=== PATIENT | male | born 1985 | race African-American/Black ===

== ENCOUNTER 2016-10-02 13:23 | Emergency (ER) | payer SELFPAY ==
[~2016-10-02] VITALS: Ht 185.4 cm; Wt 79.4 kg
[~2016-10-02 13:23] MED LIST: ACET-704 PO; ACET5SOL PO; ALBU8.5H6 IH; FAMO-63 PO; POLY10DR EACHEYE
[2016-10-02 14:03] VITALS: BP 127/79
--- NOTE | 2016-10-02 14:56 | PHYS DOC ---
Past Medical History Past Medical History: No Pertinent History Past Surgical History: No Surgical History Additional Information: quit 3 weeks ago Alcohol Use: Rarely Drug Use: Marijuana Adult General Chief Complaint Chief Complaint: VISION PROBLEM HPI HPI Patient is a 30 year old who presents stating he has black things floating in his vision figueroa for the last 3 weeks. Patient denies any vision loss. Review of Systems Review of Systems Constitutional: Denies fever or chills [] Eyes: black things floating in his vision field HENT: Denies nasal congestion or sore throat [] Musculoskeletal: Denies back pain or joint pain [] Integument: Denies rash or skin lesions [] Neurologic: Denies headache, focal weakness or sensory changes [] Endocrine: Denies polyuria or polydipsia [] Allergies Allergies Allergies Coded Allergies Type Severity Reaction Last Updated Verified No Known Drug Allergies 06/17/13 No Physical Exam Physical Exam Constitutional: Well developed, well nourished, no acute distress, non-toxic appearance. [] HENT: Normocephalic, atraumatic, bilateral external ears normal, oropharynx moist, no oral exudates, nose normal. [] Inner chambers are normal Eyes: PERRLA, EOMI, conjunctiva normal, no discharge. [] Neck: Normal range of motion, no tenderness, supple, no stridor. [] Cardiovascular:Heart rate regular rhythm, no murmur [] Skin: Warm, dry, no erythema, no rash. [] Back: No tenderness, no CVA tenderness. [] Extremities: No tenderness, no cyanosis, no clubbing, ROM intact, no edema. [] Neurologic: Alert and oriented X 3, normal motor function, normal sensory function, no focal deficits noted. [] Psychologic: Affect normal, judgement normal, mood normal. [] Current Patient Data Vital Signs Vital Signs Date Time Temp Pulse Resp B/P Pulse Ox O2 Delivery O2 Flow Rate FiO2 10/02/16 14:03 98.2 87 16 127/79 100 Room Air 98.2 EKG EKG [] Radiology/Procedures Radiology/Procedures [] Course & Med Decision Making Course & Med Decision Making Pertinent Labs and Imaging studies reviewed. (See chart for details) Patient has floaters to both his vision figueroa. Vision acuity R 20/15, L 20/15 and b 20/13. F/u with Turner In this week. Dragon Disclaimer Dragon Disclaimer This electronic medical record was generated, in whole or in part, using a voice recognition dictation system. Departure Departure Impression: Primary Impression: Floaters in visual field Disposition: 01 HOME, SELF-CARE Referrals: NO PCP (PCP) CANDIDA GAMBOA MD Follow-up with the eye doctor in one week Patient Instructions: Eye - Floaters Additional Instructions: You were seen for floaters in her vision field. Please follow-up with the provided sales support coordinator in one week. Come back to the ED for vision loss. Problem Qualifiers Primary Impression: Floaters in visual field Laterality: bilateral Qualified Code: H43.393 - Other vitreous opacities, bilateral MUTUNGAYOSVANY ENVIRONMENTAL FIELD TECHNICIAN Oct 02, 2016 14:55
== END 2016-10-02 14:58 | disposition home or self-care (01) ==
LOC: ER 13:23
DX: H43.393 Other vitreous opacities, bilateral (principal); F12.10 Cannabis abuse, uncomplicated
CPT/HCPCS: 99282

== ENCOUNTER 2016-12-15 13:01 | Emergency (ER) | payer SELFPAY ==
[~2016-12-15] VITALS: Ht 185.4 cm; Wt 74.8 kg
--- NOTE | 2016-12-15 13:29 | PHYS DOC ---
Past Medical History Past Medical History: Other Additional Past Medical Histor: chronic abd pain Past Surgical History: No Surgical History Alcohol Use: Rarely Drug Use: Marijuana Adult General Chief Complaint Chief Complaint: ABDOMINAL PAIN HPI HPI Patient is a 31 year old male presents to the emergency room stating he's had 8 days of nausea vomiting. He denies any blood being printed up. He does state that every time he eats he vomits. Patient states that he had a small bowel movement today. He states that this is not smaller than normal. He denies any fever, chills. He states he has not taken anything for the pain and discomfort. He has not taken anything for nausea vomiting. Patient continues to state that he has slightly dark yellow urine. Patient was last noted to have something to eat in the waiting room, fruits next room the vending machine. Review of Systems Review of Systems Constitutional: Denies fever or chills [] Eyes: Denies change in visual acuity, redness, or eye pain [] HENT: Denies nasal congestion or sore throat [] Respiratory: Denies cough or shortness of breath [] Cardiovascular: No additional information not addressed in HPI [] GI: abdominal pain, nausea, vomiting, denies bloody stools or diarrhea [] : Denies dysuria or hematuria [] Musculoskeletal: Denies back pain or joint pain [] Integument: Denies rash or skin lesions [] Neurologic: Denies headache, focal weakness or sensory changes [] Endocrine: Denies polyuria or polydipsia [] Current Medications Current Medications Current Medications Medications (Trade) Dose Ordered Sig/Deepthi Start Time Stop Time Status Last Admin Dose Admin Al Hydroxide/Mg Hydroxide (Mylanta Plus Xs) 30 ml 1X ONCE 12/15/16 13:30 12/15/16 13:31 DC 12/15/16 13:52 30 ML Famotidine (Pepcid) 20 mg 1X ONCE 12/15/16 16:15 12/15/16 16:16 Ondansetron HCl (Zofran) 4 mg 1X ONCE 12/15/16 13:30 12/15/16 13:31 DC 12/15/16 13:52 4 MG Sodium Chloride 1,000 ml @ 1,000 mls/hr 1X ONCE 12/15/16 13:30 12/15/16 14:29 DC 12/15/16 13:53 1,000 MLS/HR Allergies Allergies Allergies Coded Allergies Type Severity Reaction Last Updated Verified No Known Drug Allergies 06/17/13 No Physical Exam Physical Exam Constitutional: Well developed, well nourished, no acute distress, non-toxic appearance. [] HENT: Normocephalic, atraumatic, bilateral external ears normal, oropharynx moist, no oral exudates, nose normal. [] Eyes: PERRLA, EOMI, conjunctiva normal, no discharge. [] Neck: Normal range of motion, no tenderness, supple, no stridor. [] Cardiovascular:Heart rate regular rhythm, no murmur [] Lungs & Thorax: Bilateral breath sounds clear to auscultation [] Abdomen: Bowel sounds hypoactive, soft, no tenderness, no masses, no pulsatile masses. No rebound tenderness noted no point tenderness noted no guarding noted Skin: Warm, dry, no erythema, no rash. [] Back: No tenderness Extremities: No tenderness, no cyanosis, no clubbing, ROM intact, no edema. [] Neurologic: Alert and oriented X 3, normal motor function, normal sensory function, no focal deficits noted. [] Psychologic: Affect normal, judgement normal, mood normal. [] Current Patient Data Vital Signs Vital Signs Date Time Temp Pulse Resp B/P (MAP) Pulse Ox O2 Delivery O2 Flow Rate FiO2 12/15/16 13:15 99.1 85 15 154/96 (115) 98 Room Air 99.1 Lab Values Laboratory Tests Test 12/15/16 13:20 12/15/16 15:20 White Blood Count 10.8 x10^3/uL (4.0-11.0) Red Blood Count 4.92 x10^6/uL (4.30-5.70) Hemoglobin 15.1 g/dL (13.0-17.5) Hematocrit 44.2 % (39.0-53.0) Mean Corpuscular Volume 90 fL (79-100) Mean Corpuscular Hemoglobin 31 pg (25-35) Mean Corpuscular Hemoglobin Concent 34 g/dL (31-37) Red Cell Distribution Width 13.5 % (11.5-14.5) Platelet Count 393 x10^3/uL (140-400) Neutrophils (%) (Auto) 71 % (31-73) Lymphocytes (%) (Auto) 23 % (24-48) L Monocytes (%) (Auto) 4 % (0-9) Eosinophils (%) (Auto) 1 % (0-3) Basophils (%) (Auto) 0 % (0-3) Neutrophils # (Auto) 7.7 x10^3uL (1.8-7.7) Lymphocytes # (Auto) 2.5 x10^3/uL (1.0-4.8) Monocytes # (Auto) 0.5 x10^3/uL (0.0-1.1) Eosinophils # (Auto) 0.1 x10^3/uL (0.0-0.7) Basophils # (Auto) 0.0 x10^3/uL (0.0-0.2) Sodium Level 145 mmol/L (136-145) Potassium Level 3.6 mmol/L (3.5-5.1) Chloride Level 106 mmol/L (98-107) Carbon Dioxide Level 32 mmol/L (21-32) Anion Gap 7 (6-14) Blood Urea Nitrogen 10 mg/dL (8-26) Creatinine 0.9 mg/dL (0.7-1.3) Estimated GFR (Cockcroft-Gault) 119.9 BUN/Creatinine Ratio 11 (6-20) Glucose Level 103 mg/dL (70-99) H Calcium Level 8.4 mg/dL (8.5-10.1) L Total Bilirubin 0.3 mg/dL (0.2-1.0) Aspartate Amino Transferase (AST) 10 U/L (15-37) L Alanine Aminotransferase (ALT) 12 U/L (16-63) L Alkaline Phosphatase 75 U/L (46-116) Total Protein 7.2 g/dL (6.4-8.2) Albumin 3.7 g/dL (3.4-5.0) Albumin/Globulin Ratio 1.1 (1.0-1.7) Amylase Level 221 U/L (25-115) H Lipase 903 U/L (73-393) H Urine Collection Type Unknown Urine Color Yellow Urine Clarity Clear Urine pH 6.5 Urine Specific [place] 1.025 Urine Protein Negative mg/dL (NEG-TRACE) Urine Glucose (UA) Negative mg/dL (NEG) Urine Ketones (Stick) Negative mg/dL (NEG) Urine Blood Negative (NEG) Urine Nitrite Negative (NEG) Urine Bilirubin Negative (NEG) Urine Urobilinogen Dipstick 1.0 mg/dL (0.2 mg/dL) Urine Leukocyte Esterase Negative (NEG) Urine RBC 0 /HPF (0-2) Urine WBC 1-4 /HPF (0-4) Urine Squamous Epithelial Cells Few /LPF Urine Bacteria 0 /HPF (0-FEW) Urine Mucus Mod /LPF Laboratory Tests 12/15/16 13:20 Laboratory Tests 12/15/16 13:20 EKG EKG [] Radiology/Procedures Radiology/Procedures [] Course & Med Decision Making Course & Med Decision Making Pertinent Labs and Imaging studies reviewed. (See chart for details) CBC, CMP, amylase and lipase, normal saline, Zofran, Maalox, acute abdominal series have been ordered. Patient's amylase and lipase were both elevated. Patient had been provided with a Maalox in the emergency department which is helped his pain and discomfort he was able to sleep for the last 2 hours while he was here in the emergency department. Upon evaluation of the patient explaining to him that his labs looked pretty good although his amylase and lipase were elevated. Patient states that his abdominal pain and discomfort in the left upper abdomen is starting to come back. He'll provided with some Pepcid. Patient was encouraged take Pepcid on a daily basis and follow-up the primary care physician. Patient will be discharged home in stable condition signs symptoms to return back to emergency department been provided. Patient agrees with discharge instructions treatment regimens and follow-up recommendations. [] Dragon Disclaimer Dragon Disclaimer This electronic medical record was generated, in whole or in part, using a voice recognition dictation system. Departure Departure Impression: Primary Impression: Abdominal pain Disposition: 01 HOME, SELF-CARE Condition: STABLE Referrals: NO PCP (PCP) Patient Instructions: Abdominal Pain Additional Instructions: Activity as tolerated. Medications as prescribed. Clear liquid diet for the next 24 hours. Avoid fried greasy fatty foods. Follow-up with a primary care physician in the next week. Return back to emergency prior signs and symptoms of become worse. Scripts Famotidine (PEPCID) 40 Mg Tablet 40 MG PO HS, #30 TAB Prov: MARION FLORES APRN 12/15/16 MARION FLORES APRN Dec 15, 2016 13:29
[2016-12-15] MEDS ORDERED: MAG HYDROX/ALUMINUM HYD/SIMETH 30 ML ORAL.SUSP PO ONE (13:30)
[2016-12-15] MEDS ORDERED: ONDANSETRON PF 4 MG/2 ML VIAL. IV ONE (13:30)
[2016-12-15] MEDS ORDERED: IV NORMAL SALINE 1000ML BAG 1,000 ML IV ONE (13:30)
[2016-12-15 13:47] LABS: BASO % 0 % (0-3); EOS % 1 % (0-3); HEMATOCRIT 44.2 % (39.0-53.0); HEMOGLOBIN 15.1 g/dL (13.0-17.5); LYMPH # 2.5 x10^3/uL (1.0-4.8); LYMPH % 23 % (24-48); MEAN CORPUSCULAR HEMOGLOBIN 31 pg (25-35); MEAN CORPUSCULAR HGB CONC 34 g/dL (31-37); MEAN CORPUSCULAR VOLUME 90 fL (79-100); MONO % 4 % (0-9); NEUT % 71 % (31-73); PLATELET COUNT 393 x10^3/uL (140-400); RED BLOOD COUNT 4.92 x10^6/uL (4.30-5.70); RED CELL DISTRIBUTION WIDTH 13.5 % (11.5-14.5); WHITE BLOOD COUNT 10.8 x10^3/uL (4.0-11.0)
[2016-12-15 13:59] LABS: CALCIUM 8.4 mg/dL (8.5-10.1); CREATININE 0.9 mg/dL (0.7-1.3); GFR 119.9; POTASSIUM 3.6 mmol/L (3.5-5.1)
[2016-12-15 14:06] LABS: ALBUMIN 3.7 g/dL (3.4-5.0); ALBUMIN/GLOBULIN RATIO 1.1 (1.0-1.7); TOTAL BILIRUBIN 0.3 mg/dL (0.2-1.0); TOTAL PROTEIN 7.2 g/dL (6.4-8.2)
--- NOTE | 2016-12-15 14:11 | RAD ---
Examination: Acute abdomen series History: History of left upper abdominal pain, vomiting Comparison: 01/24/2016 Findings: The cardiomediastinal silhouette grossly appears unremarkable. There is no acute infiltrate or visualize pneumothorax. The bowel gas pattern appears unremarkable. Impression: 1. No acute cardiopulmonary findings. 2. Unremarkable bowel gas pattern.
[2016-12-15 15:33] LABS: BILIRUBIN,URINE NEGATIVE (NEG); GLUCOSE,URINE NEGATIVE (NEG); NITRITE,URINE NEGATIVE (NEG); PH,URINE 6.5; PROTEIN,URINE NEGATIVE (NEG-TRACE)
[2016-12-15 15:37] VITALS: BP 131/77
[2016-12-15 16:03] LABS: BACTERIA,URINE 0 /HPF (0-FEW); RBC,URINE 0 /HPF (0-2); SQUAMOUS EPITHELIAL CELL,UR FEW /LPF
[2016-12-15] MEDS ORDERED: FAMO40TA57 PO (16:03)
[2016-12-15] MEDS ORDERED: FAMOTIDINE 20 MG TABLET. PO ONE (16:15)
== END 2016-12-15 16:10 | disposition home or self-care (01) ==
LOC: ER 13:01
DX: R10.9 Unspecified abdominal pain (principal); R11.2 Nausea with vomiting, unspecified; F12.10 Cannabis abuse, uncomplicated
CPT/HCPCS: 36415; 74022; 80053; 81001; 82150; 83690; 85027; 96361; 96374; 99285; J2405; J7030

== ENCOUNTER 2018-02-21 10:27 | Emergency (ER) | payer SELFPAY ==
[~2018-02-21] VITALS: Ht 182.9 cm; Wt 77.1 kg
[~2018-02-21 10:27] MED LIST changes: +FAMO40TA57 PO
[2018-02-21 10:32] VITALS: BP 139/66
[2018-02-21] MEDS ORDERED: KETOROLAC 60 MG/2 ML INJ. IM ONE (11:15)
[2018-02-21] MEDS ORDERED: ORPH100T PO (12:12)
[2018-02-21] MEDS ORDERED: NAPR-514 PO (12:12)
--- NOTE | 2018-02-21 12:12 | PHYS DOC ---
Past Medical History Past Medical History: Other Additional Past Medical Histor: chronic abd pain Past Surgical History: No Surgical History Alcohol Use: Rarely Drug Use: Marijuana Adult General Chief Complaint Chief Complaint: LOWER BACK PAIN OR INJURY HPI HPI Patient is a 32 year old -[place] male who presents to the emergency department with bilateral low back pain that radiates to his bilateral groins after lifting his paraplegic brother into a vehicle yesterday. He denies any saddle anesthesia, or loss of bowel or bladder control. He denies any fever, abdominal pain, dysuria, increased urinary frequency, or blood in his urine. He states that his pain as a 10 out of 10 on the pain scale, and that the pain is exacerbated by movement. Review of Systems Review of Systems Constitutional: Denies fever or chills [] GI: Denies abdominal pain, or saddle anesthesia : Denies dysuria or hematuria, or loss of bowel or bladder control [] Musculoskeletal: reports low back pain that radiates to bilateral groins Neurologic: Denies headache, focal weakness or sensory changes [] All other systems were reviewed and found to be within normal limits, except as documented in this note. Current Medications Current Medications Current Medications Medications (Trade) Dose Ordered Sig/Deepthi Start Time Stop Time Status Last Admin Dose Admin Ketorolac Tromethamine (Toradol Im) 30 mg 1X ONCE 02/21/18 11:15 02/21/18 11:16 DC 02/21/18 11:29 30 MG Allergies Allergies Allergies Coded Allergies Type Severity Reaction Last Updated Verified No Known Drug Allergies 06/17/13 No Physical Exam Physical Exam Constitutional: Well developed, well nourished, no acute distress, non-toxic appearance. [] HENT: Normocephalic, atraumatic, bilateral external ears normal, nose normal. [] Eyes: Normal Lungs & Thorax: Respirations even and unlabored Back: No bony tenderness, straight leg raise negative bilateral Neurologic: Alert and oriented X 3, normal motor function, normal sensory function, no focal deficits noted. [] Psychologic: Affect normal, judgement normal, mood normal. [] Current Patient Data Vital Signs Vital Signs Date Time Temp Pulse Resp B/P (MAP) Pulse Ox O2 Delivery O2 Flow Rate FiO2 02/21/18 10:32 98.3 85 18 139/66 (90) Room Air 98.3 EKG EKG [] Radiology/Procedures Radiology/Procedures [] Course & Med Decision Making Course & Med Decision Making Pertinent Labs and Imaging studies reviewed. (See chart for details) Acute low back pain. Patient was given 30 mg of Toradol IM in the department. Prescriptions written for naproxen and orphenadrine. Recommend application of heat or ice for comfort. Activity as tolerated. Follow-up with your primary care doctor next week. Return to the ER if symptoms get worse. Patient verbalized an understanding of home care, medications, follow-up, and return to ED instructions and was in agreement with the plan of care. [] Dragon Disclaimer Dragon Disclaimer This electronic medical record was generated, in whole or in part, using a voice recognition dictation system. Departure Departure Impression: Primary Impression: Acute low back pain Disposition: HOME, SELF-CARE Condition: STABLE Referrals: NO PCP (PCP) Patient Instructions: Back Pain, Adult, [id number] Additional Instructions: Fill prescriptions and use as directed. Recommend application of heat or ice for comfort. Activity as tolerated. Follow-up with your primary care doctor next week. Return to the ER if symptoms get worse. [] Scripts Orphenadrine Citrate (ORPHENADRINE CITRATE) 100 Mg Tablet.er 1 TAB PO BID PRN for PAIN for 10 Days, #20 TAB 0 Refills Prov: KRISSY ALBERTO INSULATION MECHANIC 02/21/18 Naproxen (NAPROXEN) 500 Mg Tablet 1 TAB PO BID for 10 Days, #20 TAB 0 Refills Prov: KRISSY ALBERTO INSULATION MECHANIC 02/21/18 Problem Qualifiers Primary Impression: Acute low back pain Back pain laterality: bilateral Sciatica presence: unspecified whether sciatica present Qualified Codes: M54.5 - Low back pain KRISSY ALBERTO INSULATION MECHANIC Feb 21, 2018 12:12
== END 2018-02-21 12:25 | disposition home or self-care (01) ==
LOC: ER 10:27
DX: M54.5 Low back pain (principal); G89.29 Other chronic pain
CPT/HCPCS: 96372; 99283; J1885

== ENCOUNTER 2018-09-23 16:26 | Emergency (ER) | payer SELFPAY ==
[~2018-09-23] VITALS: Ht 185.4 cm; Wt 74.8 kg
[~2018-09-23 16:26] MED LIST changes: +NAPR-514 PO; +ORPH100T PO
[2018-09-23 17:55] VITALS: BP 133/69
[2018-09-23] MEDS ORDERED: HYDROcodone/APAP 5/325MG 1 TAB TABLET PO ONE (18:00)
[2018-09-23] MEDS ORDERED: HYDR25SU18 RC (18:05)
[2018-09-23] MEDS ORDERED: HYDR-3164 PO (18:05)
--- NOTE | 2018-09-23 18:05 | PHYS DOC ---
Past Medical History Past Medical History: Other Additional Past Medical Histor: chronic abd pain Past Surgical History: No Surgical History Alcohol Use: Rarely Drug Use: Marijuana Adult General Chief Complaint Chief Complaint: ABDOMINAL PAIN HPI HPI Patient is a 32 year old male presents to the ED complaining of rectal pain 2 days ago. Patient has a history of hemorrhoids. Patient states that he tried using preparation H (one time) at home but no improvement. States same symptoms as previous hemorrhoids. Denies abdominal pain, trauma, rectal bleeding, dysuria , testicular pain, penile discharge, chest pain, shortness of breath or fever. Review of Systems Review of Systems Constitutional: Denies fever or chills [] Eyes: Denies change in visual acuity, redness, or eye pain [] HENT: Denies nasal congestion or sore throat [] Respiratory: Denies cough or shortness of breath [] Cardiovascular: No additional information not addressed in HPI [] GI: Complains of hemorrhoids. Denies abdominal pain, nausea, vomiting, bloody stools or diarrhea [] : Denies dysuria or hematuria [] Musculoskeletal: Denies back pain or joint pain [] Integument: Denies rash or skin lesions [] Neurologic: Denies headache, focal weakness or sensory changes [] All other systems were reviewed and found to be within normal limits, except as documented in this note. Current Medications Current Medications Current Medications Medications (Trade) Dose Ordered Sig/Deepthi Start Time Stop Time Status Last Admin Dose Admin Acetaminophen/ Hydrocodone Bitart (Lortab 5/325) 1 tab 1X ONCE 09/23/18 18:00 09/23/18 18:01 DC 09/23/18 18:00 1 TAB Allergies Allergies Allergies Coded Allergies Type Severity Reaction Last Updated Verified No Known Drug Allergies 06/17/13 No Physical Exam Physical Exam Constitutional: Well developed, well nourished, no acute distress, non-toxic appearance. [] HENT: Normocephalic, atraumatic Neck: Normal range of motion, no tenderness, supple, no stridor. [] Cardiovascular:Heart rate regular rhythm, no murmur [] Lungs & Thorax: Bilateral breath sounds clear to auscultation [] Abdomen: Bowel sounds normal, soft, no tenderness, no masses, no pulsatile masses. [] Rectal: no external hemorrhoids or bleeding. No signs of thrombosis. pain on digital exam for internal evaluation. Patient refused. Skin: Warm, dry, no erythema, no rash. [] Back: No tenderness, no CVA tenderness. [] Extremities: No tenderness, no cyanosis, no clubbing, ROM intact, no edema. [] Neurologic: Alert and oriented X 3, normal motor function, normal sensory function, no focal deficits noted. [] Psychologic: Affect normal, judgement normal, mood normal. [] Current Patient Data Vital Signs Vital Signs Date Time Temp Pulse Resp B/P (MAP) Pulse Ox O2 Delivery O2 Flow Rate FiO2 09/23/18 18:00 16 99 Room Air 09/23/18 17:55 99.2 91 133/69 (90) 99.2 EKG EKG [] Radiology/Procedures Radiology/Procedures [] Course & Med Decision Making Course & Med Decision Making Pertinent Labs and Imaging studies reviewed. (See chart for details) Patient refused lab and imaging workup. Discussed risks. Patient verbalized understanding. No signs of thrombosed hemorrhoid or bleeding. Will treat with anusol suppository and analgesics which has worked for patient in the past. We'll provide a work note for patient. Discussed [id number] medications and symptomatic treatment. Discussed follow-up with PCP for further evaluation. Provided contact information/education. Discussed reasons to return to the ED. Patient understands and agrees with plan. Dragon Disclaimer Dragon Disclaimer This electronic medical record was generated, in whole or in part, using a voice recognition dictation system. Departure Departure Impression: Primary Impression: Rectal pain Disposition: HOME, SELF-CARE Condition: IMPROVED Referrals: NO PCP (PCP) SANIYA MORALEZ MD Patient Instructions: Hemorrhoids Scripts Hydrocortisone Acetate (ANUSOL-HC) 25 Mg Supp.rect 1 SUPP RC BID, #14 SUPP Prov: LUIS MCRAE 09/23/18 Hydrocodone/Apap 5-325 (NORCO 5-325 TABLET) 1 Each Tablet 1 TAB PO BID for 4 Days, #8 TAB Prov: LUIS MCRAE 09/23/18 LUIS MCRAE Sep 23, 2018 18:05
== END 2018-09-23 18:16 | disposition home or self-care (01) ==
LOC: ER 16:26
DX: K62.89 Other specified diseases of anus and rectum (principal); K64.9 Unspecified hemorrhoids; G89.29 Other chronic pain
CPT/HCPCS: 99283

== ENCOUNTER 2019-02-04 15:47 | Emergency (ER) | payer SELFPAY ==
[~2019-02-04] VITALS: Ht 185.4 cm; Wt 79.4 kg
[~2019-02-04 15:47] MED LIST changes: +HYDR-3164 PO; +HYDR25SU18 RC
[2019-02-04 15:57] VITALS: BP 146/86
[2019-02-04] MEDS ORDERED: IV NORMAL SALINE 1000ML BAG 1,000 ML IV ONE (16:00)
[2019-02-04 16:10] LABS: BILIRUBIN,URINE SMALL (NEG); CLARITY,URINE CLEAR; COLOR,URINE AMBER; NITRITE,URINE NEGATIVE (NEG); PROTEIN,URINE NEGATIVE (NEG-TRACE)
[2019-02-04 16:15] LABS: BACTERIA,URINE 0 /HPF (0-FEW); RBC,URINE 0 /HPF (0-2)
--- NOTE | 2019-02-04 16:19 | PHYS DOC ---
Past Medical History Past Medical History: No Pertinent History, Other Additional Past Medical Histor: chronic abd pain Past Surgical History: No Surgical History Alcohol Use: Rarely Drug Use: Marijuana Adult General Chief Complaint Chief Complaint: ABDOMINAL PAIN HPI HPI Patient is a 33 year old male presented ER today for evaluation of epigastric this abdominal pain associated with nausea vomiting for the last 4 days. Patient also complaint of diarrhea for the last two days. Patient denies any fever. Patient said he had the same problem like this in the past, when they gave him a GI cocktail he felt better. He denies any chest pain, no trouble breathing. He denies any blood in his stool. Review of Systems Review of Systems Constitutional: Denies fever or chills [] Eyes: Denies change in visual acuity, redness, or eye pain [] HENT: Denies nasal congestion or sore throat [] Respiratory: Denies cough or shortness of breath [] Cardiovascular: No additional information not addressed in HPI [] GI: Positive for abdominal pain, nausea, vomiting, diarrhea [] : Denies dysuria or hematuria [] Musculoskeletal: Denies back pain or joint pain [] Integument: Denies rash or skin lesions [] Neurologic: Denies headache, focal weakness or sensory changes [] Endocrine: Denies polyuria or polydipsia [] All other systems were reviewed and found to be within normal limits, except as documented in this note. Current Medications Current Medications Current Medications Medications (Trade) Dose Ordered Sig/Deepthi Start Time Stop Time Status Last Admin Dose Admin Dicyclomine HCl (Bentyl) 10 mg 1X ONCE 02/04/19 16:30 02/04/19 16:31 DC 02/04/19 16:40 10 MG Famotidine (Pepcid Vial) 20 mg 1X ONCE 02/04/19 16:30 02/04/19 16:31 DC 02/04/19 16:40 20 MG Info (CONTRAST GIVEN -- Rx MONITORING) 1 each PRN DAILY PRN 02/04/19 17:15 02/06/19 17:14 Iohexol (Omnipaque 300 Mg/ml) 75 ml 1X ONCE 02/04/19 17:00 02/04/19 17:01 DC Metoclopramide HCl (Reglan Vial) 10 mg 1X ONCE 02/04/19 17:00 02/04/19 17:01 DC Multi-Ingredient Mouthwash/Gargle (Gi Cocktail) 20 ml 1X ONCE 02/04/19 16:30 02/04/19 16:31 DC 02/04/19 16:40 20 ML Sodium Chloride 1,000 ml @ 1,000 mls/hr 1X ONCE 02/04/19 16:00 02/04/19 16:59 DC 02/04/19 16:40 1,000 MLS/HR Allergies Allergies Allergies Coded Allergies Type Severity Reaction Last Updated Verified No Known Drug Allergies 06/17/13 No Physical Exam Physical Exam Constitutional: Well developed, well nourished, no acute distress, non-toxic appearance. [] HENT: Normocephalic, atraumatic, bilateral external ears normal, oropharynx moist, no oral exudates, nose normal. [] Eyes: PERRLA, EOMI, conjunctiva normal, no discharge. [] Neck: Normal range of motion, no tenderness, supple, no stridor. [] Cardiovascular:Heart rate regular rhythm, no murmur [] Lungs & Thorax: Bilateral breath sounds clear to auscultation [] Abdomen: Bowel sounds normal, soft, There is tenderness to palpation in epigastric area, no masses, no pulsatile masses. [] Skin: Warm, dry, no erythema, no rash. [] Back: No tenderness, no CVA tenderness. [] Extremities: No tenderness, no cyanosis, no clubbing, ROM intact, no edema. [] Neurologic: Alert and oriented X 3, normal motor function, normal sensory function, no focal deficits noted. [] Psychologic: Affect normal, judgement normal, mood normal. [] Current Patient Data Vital Signs Vital Signs Date Time Temp Pulse Resp B/P (MAP) Pulse Ox O2 Delivery O2 Flow Rate FiO2 02/04/19 15:57 99.4 78 18 146/86 (106) 98 Room Air 99.4 Lab Values Laboratory Tests Test 02/04/19 16:04 02/04/19 16:25 Urine Collection Type Unknown Urine Color Elidia Urine Clarity Clear Urine pH 6.0 Urine Specific [place] >=1.030 Urine Protein Negative mg/dL (NEG-TRACE) Urine Glucose (UA) Negative mg/dL (NEG) Urine Ketones (Stick) Trace mg/dL (NEG) Urine Blood Negative (NEG) Urine Nitrite Negative (NEG) Urine Bilirubin Small (NEG) Urine Urobilinogen Dipstick 1.0 mg/dL (0.2 mg/dL) Urine Leukocyte Esterase Small (NEG) Urine RBC 0 /HPF (0-2) Urine WBC 5-10 /HPF (0-4) Urine Bacteria 0 /HPF (0-FEW) Urine Mucus Marked /LPF White Blood Count 9.5 x10^3/uL (4.0-11.0) Red Blood Count 4.95 x10^6/uL (4.30-5.70) Hemoglobin 15.7 g/dL (13.0-17.5) Hematocrit 44.1 % (39.0-53.0) Mean Corpuscular Volume 89 fL (79-100) Mean Corpuscular Hemoglobin 32 pg (25-35) Mean Corpuscular Hemoglobin Concent 36 g/dL (31-37) Red Cell Distribution Width 13.4 % (11.5-14.5) Platelet Count 337 x10^3/uL (140-400) Neutrophils (%) (Auto) 60 % (31-73) Lymphocytes (%) (Auto) 33 % (24-48) Monocytes (%) (Auto) 6 % (0-9) Eosinophils (%) (Auto) 1 % (0-3) Basophils (%) (Auto) 0 % (0-3) Neutrophils # (Auto) 5.7 x10^3/uL (1.8-7.7) Lymphocytes # (Auto) 3.1 x10^3/uL (1.0-4.8) Monocytes # (Auto) 0.6 x10^3/uL (0.0-1.1) Eosinophils # (Auto) 0.1 x10^3/uL (0.0-0.7) Basophils # (Auto) 0.0 x10^3/uL (0.0-0.2) Sodium Level 144 mmol/L (136-145) Potassium Level 3.6 mmol/L (3.5-5.1) Chloride Level 103 mmol/L (98-107) Carbon Dioxide Level 32 mmol/L (21-32) Anion Gap 9 (6-14) Blood Urea Nitrogen 11 mg/dL (8-26) Creatinine 1.0 mg/dL (0.7-1.3) Estimated GFR (Cockcroft-Gault) 104.8 BUN/Creatinine Ratio 11 (6-20) Glucose Level 100 mg/dL (70-99) H Calcium Level 9.3 mg/dL (8.5-10.1) Total Bilirubin 0.4 mg/dL (0.2-1.0) Aspartate Amino Transferase (AST) 11 U/L (15-37) L Alanine Aminotransferase (ALT) 15 U/L (16-63) L Alkaline Phosphatase 71 U/L (46-116) Total Protein 7.0 g/dL (6.4-8.2) Albumin 3.6 g/dL (3.4-5.0) Albumin/Globulin Ratio 1.1 (1.0-1.7) Lipase 96 U/L (73-393) Laboratory Tests 02/04/19 16:25 Laboratory Tests 02/04/19 16:25 EKG EKG [] Radiology/Procedures Radiology/Procedures [] Course & Med Decision Making Course & Med Decision Making Pertinent Labs and Imaging studies reviewed. (See chart for details) He was given medications in the ER, he felt much better. Patient declined any diagnosis imaging done. Dragon Disclaimer Dragon Disclaimer This electronic medical record was generated, in whole or in part, using a voice recognition dictation system. Departure Departure Impression: Primary Impression: Abdominal pain Additional Impression: Acute gastritis Disposition: 01 HOME, SELF-CARE Condition: STABLE Referrals: NO PCP (PCP) follow up with your doctor next week for reevaluation. Patient Instructions: Gastritis, Adult Scripts Metoclopramide Hcl (REGLAN) 10 Mg Tablet 1 TAB PO QID PRN for NAUSEA, #30 TAB Prov: NOVA FRANCE DO 02/04/19 Omeprazole Magnesium (PRILOSEC OTC) 20 Mg Tablet. 20 MG PO DAILY, #30 TAB Prov: NOVA FRANCE DO 02/04/19 Sucralfate (CARAFATE) 1 Gm Tablet 1 TAB PO QID for 14 Days, #56 TAB 1 Refill Prov: NOVA FRANCE DO 02/04/19 Problem Qualifiers NOVA FRANCE DO Feb 04, 2019 16:19
[2019-02-04] MEDS ORDERED: LIDO:MAALOX 1:1 20 ML SINGLE DOSE. SWSW ONE (16:30)
[2019-02-04] MEDS ORDERED: FAMOTIDINE 20 MG/2 ML VIAL IVP ONE (16:30)
[2019-02-04] MEDS ORDERED: DICYCLOMINE 20 MG/2 ML AMPUL. IM ONE (16:30)
[2019-02-04 16:37] LABS: BASO % 0 % (0-3); EOS # 0.1 x10^3/uL (0.0-0.7); EOS % 1 % (0-3); HEMATOCRIT 44.1 % (39.0-53.0); HEMOGLOBIN 15.7 g/dL (13.0-17.5); LYMPH # 3.1 x10^3/uL (1.0-4.8); LYMPH % 33 % (24-48); MEAN CORPUSCULAR HEMOGLOBIN 32 pg (25-35); MEAN CORPUSCULAR HGB CONC 36 g/dL (31-37); MEAN CORPUSCULAR VOLUME 89 fL (79-100); MONO # 0.6 x10^3/uL (0.0-1.1); MONO % 6 % (0-9); NEUT # 5.7 x10^3/uL (1.8-7.7); NEUT % 60 % (31-73); PLATELET COUNT 337 x10^3/uL (140-400); RED BLOOD COUNT 4.95 x10^6/uL (4.30-5.70); RED CELL DISTRIBUTION WIDTH 13.4 % (11.5-14.5); WHITE BLOOD COUNT 9.5 x10^3/uL (4.0-11.0)
[2019-02-04 16:44] LABS: CALCIUM 9.3 mg/dL (8.5-10.1); GFR 104.8; POTASSIUM 3.6 mmol/L (3.5-5.1)
[2019-02-04 16:50] LABS: ALBUMIN 3.6 g/dL (3.4-5.0); ALBUMIN/GLOBULIN RATIO 1.1 (1.0-1.7); TOTAL BILIRUBIN 0.4 mg/dL (0.2-1.0)
[2019-02-04] MEDS ORDERED: METOCLOPRAMIDE HCL 10 MG/2 ML VIAL. IV ONE (17:00)
[2019-02-04] MEDS ORDERED: IOHEXOL 300 MG/ML 100ML VIAL. IV ONE (17:00)
[2019-02-04] MEDS ORDERED: CONTRAST GIVEN. MC PRN (17:15)
[2019-02-04] MEDS ORDERED: SUCR1TAB35 PO (17:40)
[2019-02-04] MEDS ORDERED: OMEP20TA63 PO (17:40)
[2019-02-04] MEDS ORDERED: METO10TA81 PO (17:40)
== END 2019-02-04 18:15 | disposition home or self-care (01) ==
LOC: ER 15:47
DX: K29.00 Acute gastritis without bleeding (principal); G89.29 Other chronic pain
CPT/HCPCS: 36415; 80053; 81001; 83690; 85025; 87086; 96361; 96372; 96374; 99284; J0500; J3490; J7030; 99285-25

== ENCOUNTER 2019-03-18 12:18 | Emergency (ER) | payer SELFPAY ==
[~2019-03-18] VITALS: Ht 182.9 cm; Wt 72.6 kg
[~2019-03-18 12:18] MED LIST changes: +METO10TA81 PO; +OMEP20TA63 PO; +SUCR1TAB35 PO
[2019-03-18] MEDS ORDERED: IV NORMAL SALINE 1000ML BAG 1,000 ML IV SCH (13:12)
[2019-03-18] MEDS ORDERED: ONDANSETRON PF 4 MG/2 ML VIAL. IV ONE (13:15)
[2019-03-18] MEDS ORDERED: FAMOTIDINE 20 MG/2 ML VIAL IVP ONE (13:15)
[2019-03-18] MEDS ORDERED: KETOROLAC 30 MG/ML VIAL. IV ONE (13:15)
[2019-03-18 13:21] LABS: BILIRUBIN,URINE NEGATIVE (NEG); COLOR,URINE YELLOW; NITRITE,URINE NEGATIVE (NEG); PROTEIN,URINE NEGATIVE (NEG-TRACE)
[2019-03-18 13:23] LABS: BASO # 0.1 x10^3/uL (0.0-0.2); BASO % 1 % (0-3); EOS % 1 % (0-3); HEMATOCRIT 46.4 % (39.0-53.0); HEMOGLOBIN 16.1 g/dL (13.0-17.5); LYMPH # 2.5 x10^3/uL (1.0-4.8); LYMPH % 33 % (24-48); MEAN CORPUSCULAR HEMOGLOBIN 31 pg (25-35); MEAN CORPUSCULAR HGB CONC 35 g/dL (31-37); MEAN CORPUSCULAR VOLUME 89 fL (79-100); MONO # 0.5 x10^3/uL (0.0-1.1); MONO % 7 % (0-9); NEUT # 4.6 x10^3/uL (1.8-7.7); NEUT % 59 % (31-73); PLATELET COUNT 352 x10^3/uL (140-400); RED BLOOD COUNT 5.21 x10^6/uL (4.30-5.70); RED CELL DISTRIBUTION WIDTH 13.6 % (11.5-14.5); WHITE BLOOD COUNT 7.8 x10^3/uL (4.0-11.0)
[2019-03-18 13:28] LABS: BARBITURATES NEG (NEG); BENZODIAZEPINES NEG (NEG); CANNABINOIDS POS (NEG); COCAINE NEG (NEG); METHADONE NEG (NEG); OPIATES NEG (NEG); PHENCYCLIDINE NEG (NEG)
[2019-03-18 13:29] LABS: AMPHETAMINE/METHAMPHETAMINE NEG (NEG)
[2019-03-18 13:33] LABS: CALCIUM 9.6 mg/dL (8.5-10.1); CREATININE 0.9 mg/dL (0.7-1.3); GFR 118.3; POTASSIUM 3.6 mmol/L (3.5-5.1)
--- NOTE | 2019-03-18 13:36 | PHYS DOC ---
Past Medical History Past Medical History: Other Additional Past Medical Histor: chronic abd pain Past Surgical History: No Surgical History Alcohol Use: None Drug Use: Marijuana Adult General Chief Complaint Chief Complaint: GI PROBLEM HPI HPI Patient is a 33 year old male who presents with complaining of abdominal pain. Patient complaining of epigastric constant and sharp pain for the last 3 days with radiation to umbilicus area and rated his pain 6/10. Patient states he has had constant nausea since pain was started and more than 10 episodes of nonbloody vomiting yesterday and 3 episodes of vomiting today. Patient states he had 3 or 4 episodes of diarrhea per day without urinary symptoms, fever and chills, chest pain, shortness of breath, sick contact. Patient states he has had episodes of the same problem for the last 4 years and was in the emergency room without diagnosis. Patient denies using alcohol and states he is admitted to smoke cigarettes and use marijuana. Review of Systems Review of Systems Constitutional: Denies fever or chills [] Eyes: Denies change in visual acuity, redness, or eye pain [] HENT: Denies nasal congestion or sore throat [] Respiratory: Denies cough or shortness of breath [] Cardiovascular: No additional information not addressed in HPI [] GI: Reports abdominal pain, nausea, vomiting, diarrhea [] : Denies dysuria or hematuria [] Musculoskeletal: Denies back pain or joint pain [] Integument: Denies rash or skin lesions [] Neurologic: Denies headache, focal weakness or sensory changes [] Endocrine: Denies polyuria or polydipsia [] All other systems were reviewed and found to be within normal limits, except as documented in this note. Current Medications Current Medications Current Medications Medications (Trade) Dose Ordered Sig/Deepthi Start Time Stop Time Status Last Admin Dose Admin Famotidine (Pepcid Vial) 20 mg 1X ONCE 03/18/19 13:15 03/18/19 13:16 DC 03/18/19 13:39 20 MG Ketorolac Tromethamine (Toradol 30mg Vial) 30 mg 1X ONCE 03/18/19 13:15 03/18/19 13:16 DC 03/18/19 13:40 30 MG Ondansetron HCl (Zofran) 4 mg 1X ONCE 03/18/19 13:15 03/18/19 13:16 DC 03/18/19 13:40 4 MG Sodium Chloride 1,000 ml @ 1,000 mls/hr Q1H 03/18/19 13:12 03/18/19 14:11 DC 03/18/19 13:12 1,000 MLS/HR Allergies Allergies Allergies Coded Allergies Type Severity Reaction Last Updated Verified No Known Drug Allergies 06/17/13 No Physical Exam Physical Exam Constitutional: Well developed, well nourished, mild distress, non-toxic appearance. [] HENT: Normocephalic, atraumatic, moist oral mucosa. Eyes: PERRLA, EOMI, conjunctiva normal, no discharge. [] Neck: Normal range of motion, no tenderness, supple, no stridor. [] Cardiovascular:Heart rate regular rhythm, no murmur [] Lungs & Thorax: Bilateral breath sounds clear to auscultation [] Abdomen: Bowel sounds normal, soft, epigastric guarding , no tenderness, no masses, no pulsatile masses. [] Skin: Warm, dry, no erythema, no rash. [] Back: No tenderness, no CVA tenderness. [] Extremities: No tenderness, no cyanosis, no clubbing, ROM intact, no edema. [] Neurologic: Alert and oriented X 3, no focal deficits noted. [] Psychologic: Affect normal, judgement normal, mood normal. [] Current Patient Data Vital Signs Vital Signs Date Time Temp Pulse Resp B/P (MAP) Pulse Ox O2 Delivery O2 Flow Rate FiO2 03/18/19 15:32 83 16 136/88 (104) 98 Room Air 03/18/19 12:24 98.2 98.2 Lab Values Laboratory Tests Test 03/18/19 12:30 03/18/19 13:15 Urine Collection Type Unknown Urine Color Yellow Urine Clarity Clear Urine pH 7.0 Urine Specific [place] 1.020 Urine Protein Negative mg/dL (NEG-TRACE) Urine Glucose (UA) Negative mg/dL (NEG) Urine Ketones (Stick) Trace mg/dL (NEG) Urine Blood Negative (NEG) Urine Nitrite Negative (NEG) Urine Bilirubin Negative (NEG) Urine Urobilinogen Dipstick 1.0 mg/dL (0.2 mg/dL) Urine Leukocyte Esterase Negative (NEG) Urine RBC Rare /HPF (0-2) Urine WBC 0 /HPF (0-4) Urine Squamous Epithelial Cells Few /LPF Urine Bacteria 0 /HPF (0-FEW) Urine Mucus Marked /LPF Urine Opiates Screen Neg (NEG) Urine Methadone Screen Neg (NEG) Urine Barbiturates Neg (NEG) Urine Phencyclidine Screen Neg (NEG) Urine Amphetamine/Methamphetamine Neg (NEG) Urine Benzodiazepines Screen Neg (NEG) Urine Cocaine Screen Neg (NEG) Urine Cannabinoids Screen Pos (NEG) Urine Ethyl Alcohol Neg (NEG) White Blood Count 7.8 x10^3/uL (4.0-11.0) Red Blood Count 5.21 x10^6/uL (4.30-5.70) Hemoglobin 16.1 g/dL (13.0-17.5) Hematocrit 46.4 % (39.0-53.0) Mean Corpuscular Volume 89 fL (79-100) Mean Corpuscular Hemoglobin 31 pg (25-35) Mean Corpuscular Hemoglobin Concent 35 g/dL (31-37) Red Cell Distribution Width 13.6 % (11.5-14.5) Platelet Count 352 x10^3/uL (140-400) Neutrophils (%) (Auto) 59 % (31-73) Lymphocytes (%) (Auto) 33 % (24-48) Monocytes (%) (Auto) 7 % (0-9) Eosinophils (%) (Auto) 1 % (0-3) Basophils (%) (Auto) 1 % (0-3) Neutrophils # (Auto) 4.6 x10^3/uL (1.8-7.7) Lymphocytes # (Auto) 2.5 x10^3/uL (1.0-4.8) Monocytes # (Auto) 0.5 x10^3/uL (0.0-1.1) Eosinophils # (Auto) 0.0 x10^3/uL (0.0-0.7) Basophils # (Auto) 0.1 x10^3/uL (0.0-0.2) Prothrombin Time 12.9 SEC (11.7-14.0) Prothrombin Time INR 1.0 (0.8-1.1) Sodium Level 142 mmol/L (136-145) Potassium Level 3.6 mmol/L (3.5-5.1) Chloride Level 104 mmol/L (98-107) Carbon Dioxide Level 31 mmol/L (21-32) Anion Gap 7 (6-14) Blood Urea Nitrogen 9 mg/dL (8-26) Creatinine 0.9 mg/dL (0.7-1.3) Estimated GFR (Cockcroft-Gault) 118.3 BUN/Creatinine Ratio 10 (6-20) Glucose Level 88 mg/dL (70-99) Calcium Level 9.6 mg/dL (8.5-10.1) Total Bilirubin 0.5 mg/dL (0.2-1.0) Aspartate Amino Transferase (AST) 9 U/L (15-37) L Alanine Aminotransferase (ALT) 13 U/L (16-63) L Alkaline Phosphatase 73 U/L (46-116) Total Protein 7.5 g/dL (6.4-8.2) Albumin 4.1 g/dL (3.4-5.0) Albumin/Globulin Ratio 1.2 (1.0-1.7) Lipase 71 U/L (73-393) L Ethyl Alcohol Level < 10 mg/dL (0-10) Laboratory Tests 03/18/19 13:15 Laboratory Tests 03/18/19 13:15 EKG EKG [] Radiology/Procedures Radiology/Procedures [] Course & Med Decision Making Course & Med Decision Making Pertinent Labs reviewed. (See chart for details) Evaluation of patient in ER showed 33-year-old male patient with history of recurrent abdominal pain and episodes of vomiting and marijuana abuse presented with complaining of abdominal pain and nausea and vomiting and diarrhea. Patient had unremarkable physical exam and labs and suprapubic treatment with IV fluid, Zofran, Pepcid and Toradol in ER. Patient tolerated oral intake. Patient was advised to stop taking Medrol follow-up follow-up with GI and primary care physician. I've spoken with the patient and/or caregivers. I've explained the patient's condition, diagnosis and treatment plan based on information available to me at this time. I've answered the patient's and/or caregivers questions and addressed any concerns. The patient and/or caregivers have a good understanding the patient's diagnosis, condition and treatment plan as can be expected at this point. Vital signs have been stabilized. The patient's condition is stable for discharge from the emergency department. The patient will pursue further outpatient evaluation with her primary care provider or other designated consulting physician as outlined in the discharge instructions. Patient and/or caregivers are agreeable to this plan of care and follow-up instructions have been explained in detail. The patient and/or caregivers have received these instructions in written format and expressed understanding of these discharge instructions. The patient and her caregivers are aware that if any significant change in condition or worsening of symptoms should prompt him to immediately return to this of the closest emergency department. If an emergent department is not readily available I would encourage him to call 911. Dragon Disclaimer Dragon Disclaimer This electronic medical record was generated, in whole or in part, using a voice recognition dictation system. Departure Departure Impression: Primary Impression: Cyclic vomiting syndrome Additional Impressions: Marijuana abuse Chronic abdominal pain Disposition: HOME, SELF-CARE (at 1455) Condition: IMPROVED Referrals: NO PCP (PCP) SHAHBAZ SALDANA MD Patient Instructions: Cyclic Vomiting Syndrome Additional Instructions: Drink plenty of liquids Follow-up with your primary care physician and GI specialist in 3-5 days Return to ER if not getting better Do not eat solid food for 24 hours Scripts Ondansetron Hcl (ZOFRAN) 4 Mg Tablet 1 TAB PO PRN Q6-8HRS for nausea, #20 TAB Prov: TRI HAMILTON MD 03/18/19 Problem Qualifiers TRI HAMILTON MD Mar 18, 2019 13:36
[2019-03-18 13:38] LABS: ALBUMIN 4.1 g/dL (3.4-5.0); ALBUMIN/GLOBULIN RATIO 1.2 (1.0-1.7); PROTHROMBIN TIME PATIENT 12.9 SEC (11.7-14.0); TOTAL BILIRUBIN 0.5 mg/dL (0.2-1.0); TOTAL PROTEIN 7.5 g/dL (6.4-8.2)
[2019-03-18 13:52] LABS: CLARITY,URINE CLEAR
[2019-03-18 13:55] LABS: BACTERIA,URINE 0 /HPF (0-FEW); RBC,URINE RARE /HPF (0-2); SQUAMOUS EPITHELIAL CELL,UR FEW /LPF; WBC,URINE 0 /HPF (0-4)
[2019-03-18] MEDS ORDERED: ONDA4TAB7 PO (14:58)
[2019-03-18 15:32] VITALS: BP 136/88
== END 2019-03-18 15:41 | disposition home or self-care (01) ==
LOC: ER 12:18
DX: R11.15 Cyclical vomiting syndrome unrelated to migraine (principal); G89.29 Other chronic pain; R10.13 Epigastric pain; F12.10 Cannabis abuse, uncomplicated; F17.210 Nicotine dependence, cigarettes, uncomplicated
CPT/HCPCS: 36415; 80053; 80307; 81001; 83690; 85025; 85610; 96361; 96374; 96375; 99284; G0480; J1885; J2405; J3490; J7030

== ENCOUNTER 2020-08-26 15:52 | Emergency (ER) | payer SELFPAY ==
[~2020-08-26] VITALS: Ht 185.4 cm; Wt 77.3 kg
[~2020-08-26 15:52] MED LIST changes: +ONDA4TAB7 PO
[2020-08-26 16:40] VITALS: BP 137/73
[2020-08-26] MEDS ORDERED: HYDR-2761 PO ×2 (17:36→17:38)
[2020-08-26] MEDS ORDERED: CLIN150C15 PO (17:36)
--- NOTE | 2020-08-26 17:38 | ED.ADGEN ---
Past Medical History Past Medical History: No Pertinent History, Other Additional Past Medical Histor: chronic abd pain Past Surgical History: No Surgical History Smoking Status: Current Every Day Smoker Alcohol Use: None Drug Use: Marijuana General Adult EDM: Chief Complaint: FACE PROBLEM HPI: HPI: Patient is a 34 year old AA male who presents emergency department with complaints of swelling and pain to his left yarsani. Patient reports there is a hard lump to his lateral left eyebrow that he squeezed a few days ago and he felt something pop but no pus came out of it. He denies any drainage or bleeding from the bump in his eyebrow. He reports that his pain improved for about a day but then yesterday the area began to swell again. He denies any fever, body aches, fatigue, nausea, vomiting, diarrhea, abdominal pain, cough, ear pain, or drainage from his ears. The patient currently denies pain unless the area is touched. He denies any alleviating factors, pain is worse with palpation. Patient reports that he has had problems with abscesses in the same area they tend to recur. Review of Systems: Review of Systems: Complete ROS is negative unless otherwise noted in HPI. Allergies: Allergies: Allergies Coded Allergies Type Severity Reaction Last Updated Verified No Known Drug Allergies 06/17/13 No Physical Exam: PE: See Above Constitutional: Well developed, well nourished, no acute distress, non-toxic appearance. [] HENT: Normocephalic, atraumatic, bilateral external ears normal, nose normal. [] Eyes: PERRLA, EOMI, conjunctiva normal, no discharge. [] Neck: Normal range of motion, supple, nontender, no stridor. [] Cardiovascular:Heart rate regular rhythm Lungs & Thorax: Respirations even and unlabored, no retractions, no respiratory distress Skin: Warm, dry,; area of erythema and warmth to the left yarsani without visible or palpable pustule, nonfluctuant, tender to palpation, concerning for facial c ellulitis Extremities: No cyanosis, ROM intact, no edema. [] Neurologic: Alert and oriented X 3, no focal deficits noted. [] Psychologic: Affect normal, judgement normal, mood normal. [] Current Patient Data: Vital Signs: Vital Signs Date Time Temp Pulse Resp B/P (MAP) Pulse Ox O2 Delivery O2 Flow Rate FiO2 3/19/21 16:40 98.8 76 18 137/73 (94) 97 Room Air 98.8 EKG: EKG: [] Heart Score: C/O Chest Pain: No Risk Factors: Risk Factors: DM, Current or recent (<one month) smoker, HTN, HLP, family history of CAD, obesity. Risk Scores: Score 0 - 3: 2.5% MACE over next 6 weeks - Discharge Home Score 4 - 6: 20.3% MACE over next 6 weeks - Admit for Clinical Observation Score 7 - 10: 72.7% MACE over next 6 weeks - Early Invasive Strategies Radiology/Procedures: Radiology/Procedures: [] Course & Med Decision Making: Course & Med Decision Making Pertinent Labs and Imaging studies reviewed. (See chart for details) [] Dragon Disclaimer: Dragon Disclaimer: This electronic medical record was generated, in whole or in part, using a voice recognition dictation system. Departure Departure Impression: Primary Impression: Facial cellulitis Disposition: 01 DC HOME SELF CARE/HOMELESS Condition: STABLE Referrals: NO PCP (PCP) Patient Instructions: Cellulitis, [id number] Additional Instructions: Fill the prescription(s) and use as directed. You may take tylenol or ibuprofen as needed for pain.Apply warm, moist packs to the area to help decrease discomfort as instructed. Follow up with your primary care doctor or return to the ER in 48 hours to have wound rechecked. Return to the ER sooner if your symptoms worsen or fever develops. Scripts Hydrocodone Bit/Acetaminophen (HYDROCODONE-APAP 5-325 ) 1 Tab Tablet 1 TAB PO PRN Q6HRS PRN for PAIN for 3 Days, #4 TAB 0 Refills Prov: KRISSY ALBERTO HAT BLOCKING OPERATOR 08/26/20 Clindamycin Hcl (CLINDAMYCIN HCL) 150 Mg Capsule 450 MG PO TID for 7 Days, #63 CAP 0 Refills Prov: KRISSY ALBERTO HAT BLOCKING OPERATOR 08/26/20 KRISSY ALBERTO HAT BLOCKING OPERATOR Aug 26, 2020 17:38
== END 2020-08-26 17:45 | disposition home or self-care (01) ==
LOC: ER 15:52
DX: L03.211 Cellulitis of face (principal); R60.0 Localized edema; R51.9 Headache, unspecified; F17.200 Nicotine dependence, unspecified, uncomplicated; F12.90 Cannabis use, unspecified, uncomplicated; G89.29 Other chronic pain
CPT/HCPCS: 99283

== ENCOUNTER 2020-12-01 22:24 | Emergency (ER) | payer SELFPAY ==
[~2020-12-01 22:24] MED LIST changes: +CLIN150C15 PO; +HYDR-2761 PO
== END 2020-12-01 22:54 | disposition left against medical advice (07) ==
LOC: ER 22:24
DX: R11.2 Nausea with vomiting, unspecified (principal); R19.7 Diarrhea, unspecified; Z53.21 Procedure and treatment not carried out due to patient leaving prior to being seen by health care provider